=== PATIENT | female | born 1955 | race Caucasian/White ===

== ENCOUNTER 2016-12-20 22:50 | Emergency (ER) | payer OTHER ==
[~2016-12-20] VITALS: Ht 172.7 cm; Wt 88.5 kg
[2016-12-20] MEDS ORDERED: TESSALON PERLE100 MG PO (23:50)
[2016-12-20 23:58] VITALS: BP 153/73
== END 2016-12-21 00:07 | disposition home or self-care (01) ==
LOC: ER 22:50
DX: R05 Cough (principal); F10.99 Alcohol use, unspecified with unspecified alcohol-induced disorder; Z88.2 Allergy status to sulfonamides; Z88.1 Allergy status to other antibiotic agents